=== PATIENT | male | born 1955 | race Caucasian/White ===

== ENCOUNTER 2017-02-26 16:12 | Emergency (ER) | payer SELFPAY ==
[~2017-02-26] VITALS: Ht 167.6 cm; Wt 67.6 kg
[2017-02-26] MEDS ORDERED: Fluorescein Strips LEFT EYE ONE (16:30)
[2017-02-26] MEDS ORDERED: Tetracaine 0.5% Opth Soln LEFT EYE ONE (16:30)
[2017-02-26 16:47] VITALS: BP 143/92
[2017-02-26] MEDS ORDERED: TRAMADOL HCL50 MG ORAL (17:12)
[2017-02-26] MEDS ORDERED: GENTAMICIN SULF15 G2 OPHTHALM (17:12)
[2017-02-26 17:21] VITALS: BP 143/92
--- NOTE | 2017-02-26 22:24 | Emergency Room Report ---
History of Present Illness General Chief Complaint: Eye Problems Source: Patient Present Illness HPI The patient is a 61-year-old male presenting for left eye pain. 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 Pain is described as a 5/10 dull ache it is worse with bright lights. Pain does not radiate. He denies any changes in vision. Last tetanus shot was one year prior. Denies any other symptoms or injuries Allergies: Coded Allergies: AMPICILLIN (Verified Allergy, Severe, Rash, 02/26/17) DOXYCYCLINE (Verified Allergy, Severe, Rash, 02/26/17) Patient History Past Medical History: see triage record Pertinent Family History: none Immunizations: UTD Reviewed Nursing Documentation: PMH: Agreed, PSxH: Agreed Nursing Documentation-PMH Past Medical History: No History, Except For Review of Systems All Other Systems: negative except mentioned in HPI Physical Exam Vital Signs Date Time Temp Pulse Resp B/P Pulse Ox O2 Delivery O2 Flow Rate FiO2 02/26/17 16:20 97.3 74 18 143/92 98 Room Air General Appearance: no apparent distress, alert, GCS 15, non-toxic Head: normocephalic, atraumatic Eyes: left eye Scleral Injection, left eye fluoroscene uptake - inferior to pupil mid-cornea, bilateral eye EOMI, bilateral eye PERRL ENT: hearing grossly normal, normal pharynx, no angioedema, normal voice Neck: full range of motion, supple/symm/no masses Musculoskeletal: back normal, gait/station normal, normal range of motion, non- tender Neurologic: alert, oriented x3, responsive, motor strength/tone normal, sensory intact, speech normal Psychiatric: judgement/insight normal, memory normal, mood/affect normal, no suicidal/homicidal ideation Skin: normal color, no rash, warm/dry, well hydrated Procedures Eye Procedure Eye Procedure : Consent: Verbal Alcaine Drops Administered: Yes Eye FB Removal: removal w/ needle Eye Irrigated w/ Saline (ccs): 100 Antibiotic Ointment/Drps Admin: left eye Patient Tolerated: Well Complications: None Medical Decision Making PA Attestation Dr. Mendoza is my supervising physician. Patient management was discussed with my supervising physician Diagnostic Impression: Primary Impression: Foreign body, eye Qualified Codes: T15.92XA - Foreign body on external eye, part unspecified, left eye, initial encounter Additional Impression: Corneal abrasion, left Qualified Codes: S05.02XA - Injury of conjunctiva and corneal abrasion without foreign body, left eye, initial encounter ER Course The patient is a 61-year-old male presenting for left eye pain Differential diagnoses considered but not limited to corneal abrasion, globe injury, bacterial conjunctivitis, viral conjunctivitis, blepharitis, hordeolum Physical exam: No apparent distress Visual acuity 20/20 bilaterally Left eye: There is a small, black foreign body of the mid cornea inferior to pupil with surrounding rust ring. Left eye has corneal injection. PERRL. EOMI. no hyphema. Tetracaine was applied to the affected eye and then fluoroscene strip was applied to bottom internal eyelid. UV light was used to assess for increased uptake. Appears to be superficial uptake inferior to the pupil. Tetracaine used for anesthetic of the left eye. A 27-gauge needle was then used to remove the foreign body without any complication. Foreign body was removed as well as the rust ring. eye was then irrigated again with normal saline. Patient states that he is feeling better. He was advised needs to followup with ophthalmology as soon as possible.Prescription for Ocuflox written ER precautions given Last Vital Signs Date Time Temp Pulse Resp B/P Pulse Ox O2 Delivery O2 Flow Rate FiO2 02/26/17 17:21 97.3 18 143/92 98 Room Air 02/26/17 16:20 74 Status: improved Disposition: HOME, SELF-CARE Condition: Improved Scripts Tramadol Hcl* (ULTRAM*) 50 Mg Tablet 50 MG ORAL Q6H Y for For Pain, #10 TAB 0 Refills Prov: TERZIAN,MONICA P.A. 02/26/17 Gentamicin Sulfate (GENTAMICIN SULFATE*) 15 Gm Oint...g. 0.5 INCH OPHTHALM TID, #15 GM 0 Refills Prov: TERZIAN,MONICA P.A. 02/26/17 Patient Instructions: Eye Foreign Body, Corneal Abrasion Additional Instructions: I discussed my findings with the patient. All questions and concerns have been answered. Treatment and medication compliance have been addressed. I advised the patient that they need to follow up with PMD in 3-5 days. Return to ED if symptoms worsen, new symptoms arise, or if needed for any reason. Patient verbalized understanding of discharge instructions. The patient was advised he needs to followup with ophthalmology as soon as possible MONICA HARRY Feb 26, 2017 22:24
== END 2017-02-26 17:22 | disposition home or self-care (01) ==
LOC: EMR 16:40
DX: T15.02XA Foreign body in cornea, left eye, initial encounter (principal); X58.XXXA Exposure to other specified factors, initial encounter; Y92.89 Other specified places as the place of occurrence of the external cause; Z88.0 Allergy status to penicillin
CPT/HCPCS: 99284

== ENCOUNTER 2017-06-16 22:42 | Emergency (ER) | payer SELFPAY ==
[~2017-06-16] VITALS: Ht 167.6 cm; Wt 68.0 kg
[~2017-06-16 22:42] MED LIST: GENTAMICIN SULF15 G2 OPHTHALM; TRAMADOL HCL50 MG ORAL
[2017-06-16 22:50] VITALS: BP 158/94
[2017-06-16] MEDS ORDERED: AZITHROMYC200 MG/5 M ORAL (22:51)
[2017-06-16] MEDS ORDERED: OCUFLOX5 ML BOTH EYES (23:05)
[2017-06-16 23:10] VITALS: BP 158/94
--- NOTE | 2017-06-17 01:43 | Emergency Room Report ---
History of Present Illness General Chief Complaint: Eye Problems Source: Patient Present Illness HPI 61-year-old male presents ED for evaluation. States that starting today he was having blurry vision. Patient initially said he noticed discharge coming from both eyes his eyes were very watery. His eyes are also red. Denies any photophobia. Denies any fevers or chills. Denies headaches or nausea or vomiting. Sick contacts or recent travel. No other aggravating relieving factors. Denies any other associated symptoms Allergies: Coded Allergies: AMPICILLIN (Verified Allergy, Severe, Rash, 02/26/17) DOXYCYCLINE (Verified Allergy, Severe, Rash, 02/26/17) Patient History Past Medical History: HTN Past Surgical History: none Pertinent Family History: none Social History: Denies: smoking, alcohol use, drug use Immunizations: UTD Reviewed Nursing Documentation: PMH: Agreed, PSxH: Agreed Nursing Documentation-PMH Hx Hypertension: Yes Review of Systems All Other Systems: negative except mentioned in HPI Physical Exam Vital Signs Date Time Temp Pulse Resp B/P (MAP) Pulse Ox O2 Delivery O2 Flow Rate FiO2 06/16/17 22:48 98.2 70 14 158/94 96 Sp02 EP Interpretation: reviewed, normal General Appearance: no apparent distress, alert, GCS 15, non-toxic Head: normocephalic Eyes: bilateral eye normal inspection, bilateral eye PERRL, bilateral eye EOMI , bilateral eye Scleral Injection ENT: hearing grossly normal, normal pharynx, no angioedema, normal voice Neck: full range of motion, supple/symm/no masses Respiratory: normal inspection Cardiovascular #1: normal inspection Gastrointestinal: normal inspection Rectal: deferred Genitourinary: no CVA tenderness Musculoskeletal: back normal Neurologic: alert, oriented x3, responsive, motor strength/tone normal, sensory intact, speech normal Psychiatric: normal inspection Skin: normal inspection Lymphatic: normal inspection Medical Decision Making Diagnostic Impression: Primary Impression: Conjunctivitis Qualified Codes: H10.9 - Unspecified conjunctivitis ER Course Hospital Course 61-year-old M presents to ED with bilateral eye redness and watery discharge Differential diagnoses include: conjunctivitis, traumatic iritis, foreign body, corneal abrasion Clinical course Patient placed on stretcher. After initial history, physical exam revealed a middle-aged male no acute distress. There is injected conjunctiva and both eyes. Pupils equally reactive to light bilaterally. No evidence of foreign body. Clinical findings consistent with conjunctivitis. Diagnosis - conjunctivitis Stable and discharged to home with prescription for Ocuflox. Followup with PMD/ Optho. Return to ED if symptoms recur or worsen Last Vital Signs Date Time Temp Pulse Resp B/P (MAP) Pulse Ox O2 Delivery O2 Flow Rate FiO2 06/16/17 23:10 98.2 70 16 158/94 96 Status: improved Disposition: HOME, SELF-CARE Condition: Stable Scripts Ofloxacin (OCUFLOX) 5 Ml Drops 1 DROP BOTH EYES QID for 7 Days, ML Prov: EDMOND RASCON M.D. 06/16/17 Referrals: NOT CHOSEN IPA/,REFERRING (PCP) Patient Instructions: Bacterial Conjunctivitis EDMOND RASCON M.D. Jun 17, 2017 01:43
== END 2017-06-16 23:10 | disposition home or self-care (01) ==
LOC: EMR 22:59
DX: H10.9 Unspecified conjunctivitis (principal); I10 Essential (primary) hypertension; Z88.0 Allergy status to penicillin
CPT/HCPCS: 99283